=== PATIENT | male | born 1980 | race Caucasian/White ===

== ENCOUNTER 2023-11-09 07:54 | Day surgery (SDC) | payer BC ==
[~2023-11-09 07:54] MED LIST: Lactated Ringers 1,000 ML IV SCH; Sodium Chloride 0.9% 10 ML Syringe FLUSH PRN; Sodium Chloride 0.9% 10 ML Syringe FLUSH SCH
[2023-11-09] MEDS ORDERED: Propofol 200 MG/20 ML SDV ONE ×3 (09:39→10:22)
[2023-11-09] MEDS ORDERED: Lidocaine 2% 5 ML SDV ONE ×2 (09:39)
[2023-11-09] MEDS ORDERED: Benzocaine 20% Topical Spray UD ONE (09:57)
[2023-11-09] MEDS ORDERED: Lactated Ringers 1,000 ML ONE (09:57)
[2023-11-09] MEDS ORDERED: Metoprolol Tartrate 5 MG/5 ML SDV ONE (10:10)
== END 2023-11-09 11:40 | disposition home or self-care (01) ==
LOC: JD.SDS 07:54
PROVIDERS: ATTEND Surgery
DX: D12.3 Benign neoplasm of transverse colon (principal); K22.70 Barrett's esophagus without dysplasia; K31.89 Other diseases of stomach and duodenum; K29.70 Gastritis, unspecified, without bleeding; K21.9 Gastro-esophageal reflux disease without esophagitis; K57.30 Diverticulosis of large intestine without perforation or abscess without bleeding; K29.80 Duodenitis without bleeding; R63.4 Abnormal weight loss; F41.9 Anxiety disorder, unspecified; F17.210 Nicotine dependence, cigarettes, uncomplicated; Z79.899 Other long term (current) drug therapy; Z91.018 Allergy to other foods
CPT/HCPCS: 43239; 45380; A9270; J2704; J3490; J7120; 00813